=== PATIENT | female | born 1980 | race African-American/Black ===

== ENCOUNTER 2017-02-18 21:03 | Emergency (ER) | payer MEDICAID, OTHER ==
[~2017-02-18] VITALS: Ht 172.7 cm; Wt 54.9 kg
[~2017-02-18 21:03] MED LIST: ACETAMINOPHEN-1 EAC1 ORAL; BENTYL10 MG ORAL; CIPROFLOXACIN500 M2 ORAL; CYCLOBENZAPRINE10 MG ORAL; CYCLOBENZAPRINE10 MG PO; IBUPROFEN600 MG ORAL; IBUPROFEN800 MG ORAL; LEVAQUIN500 MG ORAL; METRONIDAZOLE500 MG ORAL; MOTRIN800 MG PO; NITROFURANTOIN100 M2 ORAL; NKM; NORCO 5-325 TA1 EACH PO; ONDANSETRON ODT4 MG PO; PHENAZOPYRIDIN200 MG ORAL; ZANTAC150 MG ORAL; ZOFRAN ODT4 MG ORAL
[2017-02-18] MEDS ORDERED: PANTOPRAZOLE SO40 MG ORAL (21:20)
--- NOTE | 2017-02-18 21:25 | Emergency Room Report ---
History of Present Illness General Chief Complaint: Female Urogenital Problems Source: Patient Present Illness HPI 36-year-old female walks in with complaints of dysuria for 4 days. "I feel like I have a UTI or bladder infection". Denies polyuria, abdominal pain, nausea, vomiting, fever or chills. Denies flank pain. Denies recent sexual intercourse or vaginal discharge. Denies frequent UTI. Allergies: Coded Allergies: No Known Allergies (Unverified , 05/06/12) Patient History Past Medical History: none Past Surgical History: none Pertinent Family History: none Social History: Denies: smoking, alcohol use, drug use Last Menstrual Period: Jan Now: No Immunizations: UTD Reviewed Nursing Documentation: PMH: Agreed, PSxH: Agreed Nursing Documentation-PMH Past Medical History: No Stated History Hx Gastrointestinal Problems: Yes - ACID REFLUX Review of Systems All Other Systems: negative except mentioned in HPI Physical Exam Vital Signs Date Time Temp Pulse Resp B/P (MAP) Pulse Ox O2 Delivery O2 Flow Rate FiO2 02/18/17 21:17 98.4 94 16 128/83 100 Room Air Sp02 EP Interpretation: reviewed, normal General Appearance: normal inspection, well appearing, no apparent distress, alert Head: atraumatic ENT: normal ENT inspection, hearing grossly normal, normal voice Neck: normal inspection, full range of motion, supple, no bony tend Respiratory: normal inspection, lungs clear, normal breath sounds, no respiratory distress, no retraction, no wheezing Cardiovascular #1: regular rate, rhythm, no edema Gastrointestinal: normal inspection, normal bowel sounds, non tender, soft, no guarding, no hernia Genitourinary: no CVA tenderness Musculoskeletal: normal inspection, back normal, normal range of motion, Yung' s Sign negative Neurologic: normal inspection, alert, responsive, speech normal Psychiatric: normal inspection, judgement/insight normal, mood/affect normal Skin: normal inspection, normal color, no rash Medical Decision Making Diagnostic Impression: Primary Impression: Dysuria Additional Impression: UTI (urinary tract infection) Qualified Codes: N30.01 - Acute cystitis with hematuria ER Course urine negative Urinalysis was positive LE and bacteria Rx Macrobid ER course: Patient has remained stable during ED stay. Disposition: Patient is to be discharged to home. Prescriptions given are macrobid Patient is instructed to follow up with their primary care doctor within 5 days. Patient is instructed to follow up with *specialist within 3 days. Strict return precautions discussed with patient such as fever, chills, worsening/severe pain, nausea, vomiting, which may indicate severe illness. Patient verbalizes understanding and agrees with plan. Please note that this Emergency Department Report was dictated using [employer] worker technology software, occasionally this can lead to erroneous entry secondary to interpretation by the dictation equipment Last Vital Signs Date Time Temp Pulse Resp B/P (MAP) Pulse Ox O2 Delivery O2 Flow Rate FiO2 02/18/17 21:17 98.4 94 16 128/83 100 Room Air Status: improved Disposition: HOME, SELF-CARE Scripts Nitrofurantoin Monohyd/M-Cryst* (MACROBID 100 MG*) 100 Mg Capsule 100 MG ORAL EVERY 12 HOURS for 7 Days, #14 CAP Prov: EARLINE STEELE M.D. 02/18/17 EARLINE STEELE M.D. Feb 18, 2017 21:25
[2017-02-18 21:45] LABS: APPEARANCE,URINE CLEAR; KETONES,URINE NEGATIVE (NEGATIVE); LEUKOCYTE ESTERASE ,URINE 3+ (NEGATIVE); NITRITE,URINE NEGATIVE (NEGATIVE); PH,URINE 6 (4.5-8.0); PROTEIN,URINE 2+ (NEGATIVE); UROBILINOGEN,URINE 4 MG/DL (0.0-1.0)
[2017-02-18] MEDS ORDERED: NITROFURANTOIN100 M2 ORAL (21:49)
[2017-02-18 21:56] LABS: BACTERIA,URINE FEW /HPF; SQUAMOUS EPITHELIAL CELL,UR FEW /LPF (NONE/OCC)
[2017-02-18 22:13] VITALS: BP 128/83
== END 2017-02-18 22:18 | disposition home or self-care (01) ==
LOC: EMR 21:10
DX: N39.0 Urinary tract infection, site not specified (principal); K21.9 Gastro-esophageal reflux disease without esophagitis
CPT/HCPCS: 81003; 81025; 99283

== ENCOUNTER 2019-01-04 14:50 | Emergency (ER) | payer MEDICAID ==
[~2019-01-04] VITALS: Ht 172.7 cm; Wt 62.6 kg
[~2019-01-04 14:50] MED LIST changes: +PANTOPRAZOLE SO40 MG ORAL
[2019-01-04] MEDS ORDERED: UNOBMED (15:01)
[2019-01-04 15:05] VITALS: BP 133/99
--- NOTE | 2019-01-04 15:05 | NUR ---
ED Nurse Note: pt walked in to ED due to sharp cp couple days after she smoked for 2 months. pt denies any cp at this time. skin warm to touch. only hx of GERD and on antiacid med. AAO x4. respirations even and non-labored noted. on case monitor. ekg done at the bed side. will wait for the further order.
--- NOTE | 2019-01-04 15:45 | NUR ---
Labs drawn and urine specimen brought to lab.
[2019-01-04 16:00] VITALS: BP 137/82
--- NOTE | 2019-01-04 16:10 | Emergency Room Report ---
History of Present Illness General Chief Complaint: Chest Pain Source: Patient Present Illness HPI This patient states that for the past month and a half she has had chest pain that occurs after she smokes cigarettes. She states that she smokes about 3 cigarettes a day. She also smokes marijuana and occasionally vapes marijuana. She denies recent illness. She denies cough or congestion. She denies fever or chills. She denies nausea or vomiting. She states that the symptoms usually last about 45 minutes after she smokes and then resolved spontaneously. She denies abdominal pain. She notes that over the past 2 months she has also felt like she may be had a hemorrhoid. She states she has some pain when she has a bowel movement and it feels like it is "torn." She denies bloody stool or dark-colored stool. She has no other complaints. Allergies: Coded Allergies: No Known Allergies (Unverified , 05/06/12) Patient History Past Medical History: see triage record, GERD Social History: Reports: smoking, drug use - THC; Denies: alcohol use Last Menstrual Period: 12/30/2018 Now: No Reviewed Nursing Documentation: PMH: Agreed; PSxH: Agreed Nursing Documentation-PMH Hx Gastrointestinal Problems: Yes - ACID REFLUX Review of Systems All Other Systems: negative except mentioned in HPI Physical Exam Vital Signs Date Time Temp Pulse Resp B/P (MAP) Pulse Ox O2 Delivery O2 Flow Rate FiO2 01/04/19 14:57 98.1 73 20 152/92 (112) 99 Room Air Sp02 EP Interpretation: reviewed, normal General Appearance: no apparent distress, alert, GCS 15, non-toxic Head: normocephalic, atraumatic Eyes: bilateral eye normal inspection, bilateral eye PERRL ENT: hearing grossly normal, normal pharynx, no angioedema, normal voice Neck: full range of motion, supple/symm/no masses Respiratory: chest non-tender, lungs clear, normal breath sounds, no respiratory distress, no retraction, no accessory muscle use, speaking full sentences Cardiovascular #1: regular rate, rhythm, no edema Gastrointestinal: normal bowel sounds, non tender, soft, non-distended, no guarding, no rebound Rectal: normal rectal tone, other - old hemorroid at 6 O'clock. There is a 2mm abrasion on the perineum. No erythema or discharge. Musculoskeletal: back normal, gait/station normal, normal range of motion, non- tender Neurologic: alert, oriented x3, responsive, motor strength/tone normal, sensory intact, speech normal Psychiatric: judgement/insight normal, memory normal, mood/affect normal, no suicidal/homicidal ideation Skin: no rash, normal color, normal inspection, warm/dry Medical Decision Making Diagnostic Impression: Primary Impression: Chest pain Additional Impression: Perineal abrasion ER Course This patient has nonspecific chest pain. Given the length of symptoms, this workup is very reassuring with negative cardiac enzymes, normal EKG, and normal chest x-ray. The patient is low risk and his symptoms are atypical for acute coronary syndrome. I have very low suspicion for PE, aortic dissection or pneumothorax based on history/physical, laboratory and radiologic workup. Patient was educated to stop using tobacco and marijuana. She indicated understanding. An abrasion on her perineum. This is not infected. I will give the patient a barrier cream. The patient was given close return precautions and followup instructions. Laboratory Tests Test 01/04/19 15:50 White Blood Count 4.2 K/UL (4.8-10.8) L Red Blood Count 4.72 M/UL (4.20-5.40) Hemoglobin 13.8 G/DL (12.0-16.0) Hematocrit 41.5 % (37.0-47.0) Mean Corpuscular Volume 88 FL (80-99) Mean Corpuscular Hemoglobin 29.3 PG (27.0-31.0) Mean Corpuscular Hemoglobin Concent 33.3 G/DL (32.0-36.0) Red Cell Distribution Width 10.8 % (11.6-14.8) L Platelet Count 233 K/UL (150-450) Mean Platelet Volume 6.7 FL (6.5-10.1) Neutrophils (%) (Auto) 47.0 % (45.0-75.0) Lymphocytes (%) (Auto) 39.0 % (20.0-45.0) Monocytes (%) (Auto) 7.3 % (1.0-10.0) Eosinophils (%) (Auto) 5.3 % (0.0-3.0) H Basophils (%) (Auto) 1.4 % (0.0-2.0) D-Dimer < 0.19 mg/L FEU Urine Color Yellow Urine Appearance Clear Urine pH 5 (4.5-8.0) Urine Specific [place] 1.015 (1.005-1.035) Urine Protein Negative (NEGATIVE) Urine Glucose (UA) Negative (NEGATIVE) Urine Ketones Negative (NEGATIVE) Urine Blood Negative (NEGATIVE) Urine Nitrite Negative (NEGATIVE) Urine Bilirubin Negative (NEGATIVE) Urine Urobilinogen 1 MG/DL (0.0-1.0) H Urine Leukocyte Esterase 1+ (NEGATIVE) H Urine RBC 0-2 /HPF (0 - 2) Urine WBC 2-4 /HPF (0 - 2) Urine Squamous Epithelial Cells Few /LPF (NONE/OCC) Urine Bacteria Few /HPF (NONE) Urine HCG, Qualitative Negative (NEGATIVE) Sodium Level 142 MMOL/L (136-145) Potassium Level 3.7 MMOL/L (3.5-5.1) Chloride Level 107 MMOL/L (98-107) Carbon Dioxide Level 28 MMOL/L (21-32) Anion Gap 7 mmol/L (5-15) Blood Urea Nitrogen 15 mg/dL (7-18) Creatinine 0.9 MG/DL (0.55-1.30) Estimate Glomerular Filtration Rate > 60 mL/min (>60) Glucose Level 78 MG/DL (74-106) Calcium Level 9.8 MG/DL (8.5-10.1) Total Bilirubin 0.3 MG/DL (0.2-1.0) Aspartate Amino Transferase (AST) 10 U/L (15-37) L Alanine Aminotransferase (ALT) 15 U/L (12-78) Alkaline Phosphatase 80 U/L (46-116) Total Creatine Kinase 53 U/L (26-308) Creatine Kinase MB 0.5 NG/ML (0.0-3.6) Creatine Kinase MB Relative Index 0.9 Troponin I 0.000 ng/mL (0.000-0.056) Total Protein 7.5 G/DL (6.4-8.2) Albumin 4.1 G/DL (3.4-5.0) Globulin 3.4 g/dL Albumin/Globulin Ratio 1.2 (1.0-2.7) Urine Opiates Screen Positive (NEGATIVE) H Urine Barbiturates Screen Negative (NEGATIVE) Phencyclidine (PCP) Screen Negative (NEGATIVE) Urine Amphetamines Screen Negative (NEGATIVE) Urine Benzodiazepines Screen Negative (NEGATIVE) Urine Cocaine Screen Negative (NEGATIVE) Urine Marijuana (THC) Screen Positive (NEGATIVE) H EKG Diagnostic Results Rate: normal Rhythm: NSR ST Segments: no acute changes Rhythm Strip Diag. Results EP Interpretation: yes Rate: 60's Rhythm: NSR, no PVC's, no ectopy Chest X-Ray Diagnostic Results Chest X-Ray Diagnostic Results : Chest X-Ray Ordered: Yes # of Views/Limited/Complete: 1 View Indication: Chest Pain EP Interpretation: Yes Interpretation: no consolidation, no effusion, no pneumothorax, no acute cardiopulmonary disease Impression: No acute disease Electronically Signed by: Kandice Beltran DO Last Vital Signs Date Time Temp Pulse Resp B/P (MAP) Pulse Ox O2 Delivery O2 Flow Rate FiO2 01/04/19 14:57 98.1 73 20 152/92 (112) 99 Room Air Status: improved Disposition: HOME, SELF-CARE Condition: Improved Referrals: [facility],REFERRING (PCP) Patient Instructions: Nonspecific Chest Pain Kandice Beltran DO Jan 04, 2019 16:10
[2019-01-04 16:15] LABS: BASOPHILS % (AUTO) 1.4 % (0.0-2.0); EOSINOPHILS % (AUTO) 5.3 % (0.0-3.0); HEMATOCRIT 41.5 % (37.0-47.0); HEMOGLOBIN 13.8 G/DL (12.0-16.0); MEAN CORPUSCULAR VOLUME 88 FL (80-99); MONOCYTES % (AUTO) 7.3 % (1.0-10.0); PLATELET COUNT 233 K/UL (150-450); RED BLOOD COUNT 4.72 M/UL (4.20-5.40); RED CELL DISTRIBUTION WIDTH 10.8 % (11.6-14.8); WHITE BLOOD COUNT 4.2 K/UL (4.8-10.8)
[2019-01-04 16:22] LABS: APPEARANCE,URINE CLEAR; BILIRUBIN, URINE NEGATIVE (NEGATIVE); GLUCOSE, URINE (UA) NEGATIVE (NEGATIVE); KETONES,URINE NEGATIVE (NEGATIVE); LEUKOCYTE ESTERASE ,URINE 1+ (NEGATIVE); NITRITE,URINE NEGATIVE (NEGATIVE); PH,URINE 5 (4.5-8.0); PROTEIN,URINE NEGATIVE (NEGATIVE); UROBILINOGEN,URINE 1 MG/DL (0.0-1.0)
[2019-01-04 16:24] LABS: COLOR,URINE YELLOW
[2019-01-04 16:27] LABS: ANION GAP 7 mmol/L (5-15); BLOOD UREA NITROGEN 15 mg/dL (7-18); CALCIUM 9.8 MG/DL (8.5-10.1); CARBON DIOXIDE 28 MMOL/L (21-32); CHLORIDE 107 MMOL/L (98-107); CREATININE 0.9 MG/DL (0.55-1.30); POTASSIUM 3.7 MMOL/L (3.5-5.1); SODIUM 142 MMOL/L (136-145)
[2019-01-04 16:40] LABS: ALANINE AMINOTRANSFERASE 15 U/L (12-78); ALBUMIN 4.1 G/DL (3.4-5.0); ALBUMIN/GLOBULIN RATIO 1.2 (1.0-2.7); ALKALINE PHOSPHATASE 80 U/L (46-116); ASPARTATE AMINO TRANSFERASE 10 U/L (15-37); BILIRUBIN,TOTAL 0.3 MG/DL (0.2-1.0); CKMB 0.5 NG/ML (0.0-3.6); CREATINE KINASE 53 U/L (26-308)
--- NOTE | 2019-01-04 16:54 | Diagnostic Imaging Report ---
Indication: Chest pain Technique: One view of the chest Comparison: 03/22/2014 Findings: Lungs and pleural spaces are clear. Heart size is normal. No significant interim change Impression: No acute process
[2019-01-04] MEDS ORDERED: TRIPLE PASTE TP (17:50)
[2019-01-04 17:57] VITALS: BP 127/78
--- NOTE | 2019-01-04 17:59 | NUR ---
ER DISCHARGE NOTE: Patient is cleared to be discharged per ERMD, pt is aox4, on room air, with stable vital signs. pt was given dc and prescription instructions, pt was able to verbalize understanding, pt id band and iv site removed without complications. pt is able to ambulate with steady gait. pt took all belongings.
== END 2019-01-04 17:59 | disposition home or self-care (01) ==
LOC: EMR 15:20
DX: R07.9 Chest pain, unspecified (principal); S30.817A Abrasion of anus, initial encounter; F17.210 Nicotine dependence, cigarettes, uncomplicated; F12.10 Cannabis abuse, uncomplicated; K21.9 Gastro-esophageal reflux disease without esophagitis; X58.XXXA Exposure to other specified factors, initial encounter; Y92.9 Unspecified place or not applicable
CPT/HCPCS: 36415; 71045; 80053; 80307; 81003; 81025; 82550; 82553; 84484; 85025; 85379; 93005; 96360; Z7502; 99284

== ENCOUNTER → 2019-03-18 | Emergency (ER) | payer MEDICAID ==
[~2019-03-18] VITALS: Ht 172.7 cm; Wt 61.2 kg
[~2019-03-18] MED LIST changes: +TRIPLE PASTE TP; +UNOBMED; +ZYRTEC-D TABLE1 EACH ORAL
[2019-03-18 17:45] VITALS: BP 140/88
--- NOTE | 2019-03-18 17:45 | NUR ---
ED Nurse Note: Pt ambulated to ED with c/o earpain on the LT. Pt is AOx3, no signs of any acute distress. VSS.
--- NOTE | 2019-03-18 18:30 | NUR ---
ED Nurse Note: PA on pt side.
--- NOTE | 2019-03-18 18:54 | Emergency Room Report ---
History of Present Illness General Chief Complaint: Earache Source: Patient Present Illness HPI 38 YO female presents to the ED c/o 12/31 in severity left ear pain x 2 weeks. Denies d/c, ear trauma, tinnitus, or changes in her hearing. Pt. reports sx's are intermittent. She denies fevers or chills. She denies pain to the outer ear. Reports hx of issues with the left ear in the past. She reports hx of environmental allergies and was taking claritin daily. No other complaint of symptoms, no aggravating or relieving factors. Allergies: Coded Allergies: No Known Allergies (Unverified , 05/06/12) Patient History Past Medical History: see triage record Past Surgical History: none Pertinent Family History: none Last Menstrual Period: CURRENTLY ON HER PERIOD Now: No Reviewed Nursing Documentation: PMH: Agreed; PSxH: Agreed Nursing Documentation-PMH Past Medical History: No History, Except For Hx Gastrointestinal Problems: Yes - ACID REFLUX Review of Systems All Other Systems: negative except mentioned in HPI Physical Exam Vital Signs Date Time Temp Pulse Resp B/P (MAP) Pulse Ox O2 Delivery O2 Flow Rate FiO2 03/18/19 17:44 98.2 84 20 144/92 (109) 98 Room Air Sp02 EP Interpretation: reviewed, normal General Appearance: no apparent distress, alert, GCS 15, non-toxic Head: normocephalic, atraumatic Eyes: bilateral eye normal inspection, bilateral eye PERRL ENT: hearing grossly normal, normal pharynx, normal voice, uvula midline, moist mucus membranes, other - left TM is bulging but not erythematous. Canal is WNL. right Tm and canal are WNL Neck: full range of motion Respiratory: lungs clear, normal breath sounds, speaking full sentences Cardiovascular #1: regular rate, rhythm Musculoskeletal: normal range of motion, gait/station normal, non-tender Neurologic: alert, motor strength/tone normal, oriented x3, sensory intact, responsive, speech normal Psychiatric: judgement/insight normal Skin: no rash, normal color, normal inspection Lymphatic: no adenopathy Medical Decision Making PA Attestation Dr. Duarte Is my supervising Physician whom patient management has been discussed with. Diagnostic Impression: Primary Impression: Ear pain, left Additional Impression: Pressure-related ear pain Qualified Codes: T70.0XXA - Otitic barotrauma, initial encounter ER Course 38 YO female presents to the ED c/o 12/31 in severity left ear pain x 2 weeks. Denies d/c, ear trauma, tinnitus, or changes in her hearing. Pt. reports sx's are intermittent. She denies fevers or chills. She denies pain to the outer ear. Reports hx of issues with the left ear in the past. She reports hx of environmental allergies and was taking claritin daily. No other complaint of symptoms, no aggravating or relieving factors. Ddx considered but are not limited to OM, OE, mastoiditis, TM perforation, FB Vital signs: are WNL, pt. is afebrile H&PE are most consistent with otitis media ORDERS: none required at this time, the diagnosis is clinical -OTOSCOPY: left TM is bulging but not erythematous. Canal is WNL. right Tm and canal are WNL ED INTERVENTIONS: None required at this time. -I do not identify an emergent condition at this time. With current presentation , pt. is stable for close outpatient follow up and conservative treatment. D/ w pt. to return promptly to ED with worsening or new symptoms.- Pt. verbalizes' understanding and agreement with proposed treatment plan. DISCHARGE: At this time pt. is stable for d/c to home. Will provide printed patient care instructions, and any necessary prescriptions. Care plan and follow up instructions have been discussed with the patient prior to discharge. Last Vital Signs Date Time Temp Pulse Resp B/P (MAP) Pulse Ox O2 Delivery O2 Flow Rate FiO2 03/18/19 17:44 98.2 84 20 144/92 (109) 98 Room Air Disposition: HOME, SELF-CARE Condition: Stable Scripts Cetirizine Hcl/Pseudoephedrine (ZYRTEC-D TABLET) 1 Each Tab.er.12h 1 EACH ORAL Q12HR, #20 TAB Prov: Yael Damon 03/18/19 Ibuprofen* (MOTRIN*) 600 Mg Tablet 600 MG ORAL THREE TIMES A DAY, #30 TAB 0 Refills Prov: Yeal Damon 03/18/19 Patient Instructions: Earache Additional Instructions: Take medications as directed. Follow up with a Primary Care Provider in 3-5 days for ENT SPECIALIST referral. Even if your symptoms have resolved. --Please review list of primary care clinics, if you do not already have a primary care provider Return sooner to ED if new symptoms occur, or current symptoms become worse. - Please note that this Emergency Department Report was dictated using [employer] technology software, occasionally this can lead to erroneous entry secondary to interpretation by the dictation equipment. Yael Damon Mar 18, 2019 18:54
[2019-03-18 19:00] VITALS: BP 138/95
--- NOTE | 2019-03-18 19:00 | NUR ---
ER DISCHARGE NOTE: Patient is cleared to be discharged per ERMD, pt is aox4, on room air, with stable vital signs. pt was given dc and prescription instructions, pt was able to verbalize understanding, pt id band removed. pt is able to ambulate with steady gait. pt took all belongings.
== END | disposition home or self-care (01) ==
LOC: EMR 19:00
DX: T70.0XXA Otitic barotrauma, initial encounter (principal); H92.02 Otalgia, left ear; K21.9 Gastro-esophageal reflux disease without esophagitis
CPT/HCPCS: 99282